=== PATIENT | female | born 1965 | race African-American/Black ===

== ENCOUNTER 2018-06-04 12:19 | Inpatient (IN) | payer MEDICAID, OTHER ==
[2018-06-04 12:49] LABS: ADD MAN DIFF? NO
[2018-06-04 12:57] LABS: BASOPHILS % 0.5 % (0.0-2.0); EOSINOPHILS # 0.2 10^3/ul (0.0-0.5); EOSINOPHILS % 2.3 % (0.0-7.0); HEMATOCRIT 30.1 % (37.0-47.0); HEMOGLOBIN 9.5 g/dl (12.0-16.0); LYMPHOCYTES # 1.7 10^3/ul (0.8-2.9); LYMPHOCYTES % 18.9 % (15.0-51.0); MEAN CORPUSCULAR HEMOGLOBIN 24.9 pg (29.0-33.0); MEAN CORPUSCULAR HGB CONC 31.6 g/dl (32.0-37.0); MEAN PLATELET VOLUME 10.7 fl (7.4-10.4); MONOCYTE # 0.6 10^3/ul (0.3-0.9); MONOCYTES % 6.5 % (0.0-11.0); NEUTROPHIL # 6.3 10^3/ul (1.6-7.5); NEUTROPHILS % 71.3 % (39.0-77.0); PLATELET COUNT 316 10^3/UL (140-415); RED BLOOD COUNT 3.81 10^6/ul (4.20-5.40); RED CELL DISTRIBUTION WIDTH 19.7 % (11.5-14.5)
[2018-06-04 12:57] LABS: WHITE BLOOD COUNT 8.8 10^3/ul (4.8-10.8)
[2018-06-04 13:14] LABS: ALANINE AMINOTRANSFERASE 18 IU/L (13-69); ALBUMIN 3.8 g/dl (3.3-4.9); ALBUMIN/GLOBULIN RATIO 1.02; ALKALINE PHOSPHATASE 71 IU/L (42-121); ANION GAP 9 (5-13); ASPARTATE AMINO TRANSFERASE 21 IU/L (15-46); BILIRUBIN,INDIRECT 0.1 mg/dl (0-1.1); BILIRUBIN,TOTAL 0.1 mg/dl (0.2-1.3); BLOOD UREA NITROGEN 16 mg/dl (7-20); CARBON DIOXIDE 34 mmol/L (21-31); CHLORIDE 98 mmol/L (97-110); CREATININE 0.69 mg/dl (0.44-1.00); Estimated GFR > 60 mL/min (>60); GLUCOSE 117 mg/dl (70-220); LIPASE 77 U/L (23-300); POTASSIUM 3.1 mmol/L (3.5-5.1); SODIUM 141 mmol/L (135-144); TOTAL PROTEIN 7.5 g/dl (6.1-8.1)
[2018-06-04 13:25] LABS: TROPONIN-I < 0.012 ng/ml (0.000-0.120)
[2018-06-04 13:40] LABS: URINE BLOOD (Dip) POC 1+ (NEGATIVE); URINE GLUCOSE (Dip) POC Negative (NEGATIVE); URINE KETONES (Dip) POC 1+ (NEGATIVE); URINE LEUKOCYTE EST (Dip) POC Negative (NEGATIVE); URINE NITRITE (Dip) POC Negative (NEGATIVE); URINE TOTAL PROTEIN POC 1+ (NEGATIVE)
[2018-06-04 13:51] LABS: D-DIMER 7034.91 ng/ml (<460)
[2018-06-04] MEDS: SOD CHLORIDE 0.9% 100 ML (15:25)
[2018-06-04] MEDS: IOHEXOL 100 ML (15:25)
[2018-06-04] MEDS: POTASSIUM CHLORIDE (SR) 20 MEQ TAB PO (15:51)
[2018-06-04 16:16] LABS: HAAIG REFLEX REFLEX FILED
[2018-06-04] MEDS ORDERED: morphine 2 MG INJ IV (16:30)
[2018-06-04] MEDS ORDERED: NACL 0.9% 3 ML SYG IV (16:30)
[2018-06-04] MEDS ORDERED: HYDROCODONE/APAP (5/325) TAB PO (16:30)
[2018-06-04 16:57] LABS: HEPATITIS B SURFACE ANTIGEN NEGATIVE (NEGATIVE)
[2018-06-04 16:58] LABS: CANCER ANTIGEN 125 16.8 U/ml (0.0-35.0)
[2018-06-04 17:01] LABS: ALPHA FETOPROTEIN 2.28 IU/L (0.00-7.21)
[2018-06-04 17:01] LABS: CANCER ANTIGEN 19-9 50.5 U/ml (0.0-37.0)
[2018-06-04 17:15] LABS: HEPATITIS B CORE ANTIBODY NEGATIVE (NEGATIVE); HEPATITIS C VIRAL ANTIBODY NEGATIVE (NEGATIVE)
[2018-06-04] MEDS: D5W-0.45 NACL + KCL 20 MEQ 1,000 ML IV (18:23)
[2018-06-05] MEDS: D5W-0.45 NACL + KCL 20 MEQ 1,000 ML IV ×4 (02:10→22:04)
[2018-06-05 06:39] LABS: ADD MAN DIFF? NO
[2018-06-05 06:52] LABS: BASOPHILS % 0.4 % (0.0-2.0); EOSINOPHILS # 0.3 10^3/ul (0.0-0.5); HEMATOCRIT 26.4 % (37.0-47.0); HEMOGLOBIN 8.4 g/dl (12.0-16.0); LYMPHOCYTES # 1.7 10^3/ul (0.8-2.9); LYMPHOCYTES % 23.7 % (15.0-51.0); MEAN CORPUSCULAR HEMOGLOBIN 25.2 pg (29.0-33.0); MEAN CORPUSCULAR HGB CONC 31.8 g/dl (32.0-37.0); MEAN CORPUSCULAR VOLUME 79.3 fl (82.0-101.0); MEAN PLATELET VOLUME 10.8 fl (7.4-10.4); MONOCYTE # 0.6 10^3/ul (0.3-0.9); MONOCYTES % 8.8 % (0.0-11.0); NEUTROPHIL # 4.6 10^3/ul (1.6-7.5); NEUTROPHILS % 62.8 % (39.0-77.0); PLATELET COUNT 283 10^3/UL (140-415); RED BLOOD COUNT 3.33 10^6/ul (4.20-5.40); RED CELL DISTRIBUTION WIDTH 19.6 % (11.5-14.5)
[2018-06-05 06:52] LABS: WHITE BLOOD COUNT 7.3 10^3/ul (4.8-10.8)
[2018-06-05 07:27] LABS: HEMOGLOBIN A1C 5.6 % (0-5.9)
[2018-06-05 07:32] LABS: IRON 30 ug/dl (35-150)
[2018-06-05 07:39] LABS: ANION GAP 7 (5-13); BLOOD UREA NITROGEN 13 mg/dl (7-20); CALCIUM 8.2 mg/dl (8.4-10.2); CARBON DIOXIDE 34 mmol/L (21-31); CHLORIDE 100 mmol/L (97-110); CREATININE 0.68 mg/dl (0.44-1.00); Estimated GFR > 60 mL/min (>60); GLUCOSE 99 mg/dl (70-220); MAGNESIUM 1.9 mg/dl (1.7-2.5); PHOSPHORUS 3.4 mg/dl (2.5-4.9); POTASSIUM 3.4 mmol/L (3.5-5.1); SODIUM 141 mmol/L (135-144)
[2018-06-05 07:41] LABS: % IRON SATURATION 11 % SAT (22-52); TOTAL IRON BINDING CAPACITY 262 ug/dl (241-421)
[2018-06-05] MEDS: ACETAMINOPHEN 325 MG TAB PO (10:15)
[2018-06-05] MEDS: AMLODIPINE 5 MG TAB PO (10:15)
[2018-06-05] MEDS: BISACODYL (EC) 5 MG TAB PO (15:35)
[2018-06-05] MEDS: POLYETHYLENE GLYCOL 3350 119 GM POWDER PO (17:54)
[2018-06-05] MEDS: SOD FERRIC GLUC COMPLX 125 MG in SOD CHLORIDE 0.9% 100 ML IVPB (17:58)
[2018-06-05] MEDS: MAGNESIUM CITRATE 300 ML BTL PO (18:42)
[2018-06-05] MEDS: ONDANSETRON 4 MG INJ IV (22:16)
[2018-06-06] MEDS: D5W-0.45 NACL + KCL 20 MEQ 1,000 ML IV ×3 (04:55→20:24)
[2018-06-06] MEDS: POLYETHYLENE GLYCOL 3350 119 GM POWDER PO (05:02)
[2018-06-06 06:58] LABS: ANION GAP 8 (5-13); BLOOD UREA NITROGEN 8 mg/dl (7-20); CALCIUM 8.8 mg/dl (8.4-10.2); CARBON DIOXIDE 32 mmol/L (21-31); CHLORIDE 102 mmol/L (97-110); CREATININE 0.65 mg/dl (0.44-1.00); Estimated GFR > 60 mL/min (>60); GLUCOSE 117 mg/dl (70-220); POTASSIUM 3.2 mmol/L (3.5-5.1); SODIUM 142 mmol/L (135-144)
[2018-06-06] MEDS ORDERED: PROPOFOL 200 MG INJ (07:00)
[2018-06-06] MEDS: BISACODYL (EC) 5 MG TAB PO (07:03)
[2018-06-06] MEDS: ACETAMINOPHEN 325 MG TAB PO (07:05)
[2018-06-06] MEDS: AMLODIPINE 5 MG TAB PO (08:11)
[2018-06-06] MEDS: SOD FERRIC GLUC COMPLX 125 MG in SOD CHLORIDE 0.9% 100 ML IVPB (18:43)
[2018-06-07] MEDS: D5W-0.45 NACL + KCL 20 MEQ 1,000 ML IV ×4 (04:04→23:45)
[2018-06-07 07:56] LABS: ANION GAP 9 (5-13); BLOOD UREA NITROGEN 6 mg/dl (7-20); CALCIUM 8.6 mg/dl (8.4-10.2); CARBON DIOXIDE 30 mmol/L (21-31); CHLORIDE 103 mmol/L (97-110); CREATININE 0.68 mg/dl (0.44-1.00); Estimated GFR > 60 mL/min (>60); GLUCOSE 113 mg/dl (70-220); POTASSIUM 3.2 mmol/L (3.5-5.1); SODIUM 142 mmol/L (135-144)
[2018-06-07] MEDS: AMLODIPINE 5 MG TAB PO (09:56)
[2018-06-07] MEDS: LIDOCAINE 2% (SDV) 5 ML INJ (09:57)
[2018-06-07] MEDS: PROPOFOL 40 ML (09:58)
[2018-06-07] MEDS: IOHEXOL 300MG/ML 150 ML BTL (11:57)
[2018-06-07] MEDS: POTASSIUM CHLORIDE (SR) 20 MEQ TAB PO (11:58)
[2018-06-07] MEDS: SOD FERRIC GLUC COMPLX 125 MG in SOD CHLORIDE 0.9% 100 ML IVPB (17:00)
[2018-06-08 06:25] LABS: ADD MAN DIFF? NO
[2018-06-08 06:31] LABS: WHITE BLOOD COUNT 7.5 10^3/ul (4.8-10.8)
[2018-06-08 06:31] LABS: BASOPHILS % 0.4 % (0.0-2.0); EOSINOPHILS # 0.3 10^3/ul (0.0-0.5); EOSINOPHILS % 3.9 % (0.0-7.0); HEMATOCRIT 23.6 % (37.0-47.0); HEMOGLOBIN 7.3 g/dl (12.0-16.0); LYMPHOCYTES # 1.8 10^3/ul (0.8-2.9); LYMPHOCYTES % 23.7 % (15.0-51.0); MEAN CORPUSCULAR HGB CONC 30.9 g/dl (32.0-37.0); MEAN CORPUSCULAR VOLUME 80.8 fl (82.0-101.0); MEAN PLATELET VOLUME 10.1 fl (7.4-10.4); MONOCYTE # 0.4 10^3/ul (0.3-0.9); MONOCYTES % 5.8 % (0.0-11.0); NEUTROPHIL # 4.9 10^3/ul (1.6-7.5); NEUTROPHILS % 65.4 % (39.0-77.0); PLATELET COUNT 349 10^3/UL (140-415); RED BLOOD COUNT 2.92 10^6/ul (4.20-5.40); RED CELL DISTRIBUTION WIDTH 20.1 % (11.5-14.5)
[2018-06-08 06:53] LABS: ANION GAP 7 (5-13); BLOOD UREA NITROGEN 5 mg/dl (7-20); CALCIUM 8.9 mg/dl (8.4-10.2); CARBON DIOXIDE 30 mmol/L (21-31); CHLORIDE 106 mmol/L (97-110); CREATININE 0.65 mg/dl (0.44-1.00); Estimated GFR > 60 mL/min (>60); GLUCOSE 105 mg/dl (70-220); POTASSIUM 3.6 mmol/L (3.5-5.1); SODIUM 143 mmol/L (135-144)
[2018-06-08] MEDS: AMLODIPINE 5 MG TAB PO (08:27)
[2018-06-08] MEDS: D5W-0.45 NACL + KCL 20 MEQ 1,000 ML IV ×2 (10:04→11:47)
[2018-06-09] MEDS: D5W-0.45 NACL + KCL 20 MEQ 1,000 ML IV (01:09)
[2018-06-09] MEDS: AMLODIPINE 5 MG TAB PO (08:48)
[2018-06-10] MEDS: AMLODIPINE 5 MG TAB PO (08:45)
[2018-06-11] MEDS: AMLODIPINE 5 MG TAB PO (08:20)
[2018-06-11] MEDS: BARIUM SULF 2% 450 ML BTL (BERRY SMOOTHIE) PO (15:01)
[2018-06-11] MEDS: ONDANSETRON 4 MG INJ IV (16:18)
[2018-06-11] MEDS: SOD FERRIC GLUC COMPLX 125 MG in SOD CHLORIDE 0.9% 100 ML IVPB (16:37)
[2018-06-11] MEDS: IOHEXOL 300MG/ML 150 ML BTL (18:34)
[2018-06-11] MEDS: SOD CHLORIDE 0.9% 100 ML (18:34)
[2018-06-12] MEDS: AMLODIPINE 5 MG TAB PO (08:32)
[2018-06-12] MEDS: SOD FERRIC GLUC COMPLX 125 MG in SOD CHLORIDE 0.9% 100 ML IVPB (17:13)
[2018-06-13 07:20] LABS: ADD MAN DIFF? NO
[2018-06-13 07:27] LABS: ABNORMAL IP MESSAGE 1; BASOPHILS % 0.3 % (0.0-2.0); EOSINOPHILS # 0.3 10^3/ul (0.0-0.5); EOSINOPHILS % 4.5 % (0.0-7.0); HEMATOCRIT 21.4 % (37.0-47.0); LYMPHOCYTES # 1.6 10^3/ul (0.8-2.9); MEAN CORPUSCULAR HEMOGLOBIN 25.7 pg (29.0-33.0); MEAN CORPUSCULAR HGB CONC 30.8 g/dl (32.0-37.0); MEAN CORPUSCULAR VOLUME 83.3 fl (82.0-101.0); MEAN PLATELET VOLUME 9.6 fl (7.4-10.4); MONOCYTE # 0.7 10^3/ul (0.3-0.9); MONOCYTES % 10.4 % (0.0-11.0); NEUTROPHIL # 4.3 10^3/ul (1.6-7.5); NEUTROPHILS % 60.4 % (39.0-77.0); PLATELET COUNT 412 10^3/UL (140-415); RED BLOOD COUNT 2.57 10^6/ul (4.20-5.40); RED CELL DISTRIBUTION WIDTH 21.7 % (11.5-14.5)
[2018-06-13 07:40] LABS: POSITIVE DIFF @See below
[2018-06-13 07:44] LABS: HEMOGLOBIN 6.6 g/dl (12.0-16.0)
[2018-06-13 07:45] LABS: ANION GAP 6 (5-13); BLOOD UREA NITROGEN 13 mg/dl (7-20); CALCIUM 8.9 mg/dl (8.4-10.2); CARBON DIOXIDE 31 mmol/L (21-31); CHLORIDE 100 mmol/L (97-110); CREATININE 0.73 mg/dl (0.44-1.00); Estimated GFR > 60 mL/min (>60); GLUCOSE 94 mg/dl (70-220); PATH REVIEW? YES; SODIUM 137 mmol/L (135-144)
[2018-06-13] MEDS: AMLODIPINE 5 MG TAB PO (08:35)
[2018-06-13 09:35] LABS: ANISOCYTOSIS 1+ (0-0); BAND NEUTROPHILS #M 0.3 10^3/ul (0.0-0.6); BAND NEUTROPHILS % (M) 5 % (0-4); EOSINOPHILS % (M) 10 % (0-7); ERYTHROBLAST% (NRBC) (M) 1 % (0-0); HYPOCHROMASIA 1+ (0-0); LYMPHOCYTES #M 1.4 10^3/ul (0.8-2.9); LYMPHOCYTES % (M) 20 % (15-51); MICROCYTOSIS 1+ (0-0); MONOCYTE #M 0.4 10^3/ul (0.3-0.9); MONOCYTES % (M) 6 % (0-11); OVALOCYTES 1+ (0-0); PLATELET ESTIMATE NORMAL; POIKILOCYTOSIS 1+ (0-0); POLYCHROMASIA 3+ (0-0); REACTIVE LYMPHOCYTES #M 0.2 10^3/ul (0.0-0.0); REACTIVE LYMPHOCYTES% (M) 3 % (0-0); SEG NEUT #M 3.9 10^3/ul (1.6-7.5); SEGMENTED NEUTROPHILS (M) % 56 % (39-77); SMUDGE%M 17 % (0-0)
[2018-06-13 10:13] LABS: INR 1.01; PROTIME 13.4 Sec (11.9-14.9)
[2018-06-13 10:14] LABS: PARTIAL THROMBOPLASTIN TIME 31.3 Sec (23.0-35.0)
[2018-06-13] MEDS: SOD FERRIC GLUC COMPLX 125 MG in SOD CHLORIDE 0.9% 100 ML IVPB (16:27)
[2018-06-13] MEDS ORDERED: morphine LIQ (10 MG/5 ML) CUP PO (21:00)
[2018-06-13 21:47] LABS: IMMEDIATE SPIN CROSSMATCH 1 2
[2018-06-14] MEDS: AMLODIPINE 5 MG TAB PO (09:56)
== END 2018-06-14 13:12 | disposition home or self-care (01) | DRG 375 ==
LOC: PP2 06-07 06:47 → E/R 12:19 → TEL 14:34
PROC: 0DBN8ZX Excision of Sigmoid Colon, Via Natural or Artificial Opening Endoscopic, Diagnostic (ICD-10-PCS; principal; 2018-06-06 16:00)
PROC: 0DB78ZX Excision of Stomach, Pylorus, Via Natural or Artificial Opening Endoscopic, Diagnostic (ICD-10-PCS; 2018-06-06 16:00)
PROC: 30233N1 Transfusion of Nonautologous Red Blood Cells into Peripheral Vein, Percutaneous Approach (ICD-10-PCS; 2018-06-06 16:00)
DX: C18.7 Malignant neoplasm of sigmoid colon (principal); C77.2 Secondary and unspecified malignant neoplasm of intra-abdominal lymph nodes; C78.7 Secondary malignant neoplasm of liver and intrahepatic bile duct; C79.82 Secondary malignant neoplasm of genital organs; N13.30 Unspecified hydronephrosis; D50.0 Iron deficiency anemia secondary to blood loss (chronic); E86.0 Dehydration; E87.6 Hypokalemia; I10 Essential (primary) hypertension; R55 Syncope and collapse; R63.4 Abnormal weight loss; Z68.23 Body mass index [BMI] 23.0-23.9, adult; Z90.49 Acquired absence of other specified parts of digestive tract
CPT/HCPCS: 36415; 36430; 70450; 71045; 71275; 74176; 74177; 74181; 74270; 76705; 80048; 80053; 81003; 82105; 82378; 82728; 83036; 83540; 83690; 83735; 84100; 84484; 85025; 85378; 85610; 85730; 86301; 86304; 86704; 86709; 86803; 86850; 86900; 86901; 86920; 87340; 88305; 88312; 93005; 93306; 99291-25

== ENCOUNTER 2018-07-15 13:46 | Emergency (ER) | payer MEDICAID ==
[2018-07-15] MEDS: SOD CHLORIDE 0.9% 500 ML IV (14:09)
[2018-07-15 14:36] LABS: ABNORMAL IP MESSAGE 1; HEMATOCRIT 18.4 % (37.0-47.0); MEAN CORPUSCULAR HEMOGLOBIN 26.1 pg (29.0-33.0); MEAN CORPUSCULAR VOLUME 84.4 fl (82.0-101.0); MEAN PLATELET VOLUME 8.6 fl (7.4-10.4); PLATELET COUNT 475 10^3/UL (140-415); RED BLOOD COUNT 2.18 10^6/ul (4.20-5.40); RED CELL DISTRIBUTION WIDTH 15.7 % (11.5-14.5)
[2018-07-15 14:42] LABS: POSITIVE DIFF @See below
[2018-07-15 14:46] LABS: PROTIME 13.3 Sec (11.9-14.9)
[2018-07-15 14:47] LABS: ADD MAN DIFF? YES; HEMOGLOBIN 5.7 g/dl (12.0-16.0); PARTIAL THROMBOPLASTIN TIME 26.8 Sec (23.0-35.0); PATH REVIEW? YES
[2018-07-15 14:49] LABS: ALANINE AMINOTRANSFERASE 16 IU/L (13-69); ALBUMIN 3.4 g/dl (3.3-4.9); ALBUMIN/GLOBULIN RATIO 0.91; ALKALINE PHOSPHATASE 77 IU/L (42-121); ANION GAP 9 (5-13); ASPARTATE AMINO TRANSFERASE 29 IU/L (15-46); BLOOD UREA NITROGEN 13 mg/dl (7-20); CALCIUM 8.9 mg/dl (8.4-10.2); CARBON DIOXIDE 31 mmol/L (21-31); CHLORIDE 94 mmol/L (97-110); CREATININE 0.74 mg/dl (0.44-1.00); Estimated GFR > 60 mL/min (>60); GLUCOSE 110 mg/dl (70-220); POTASSIUM 3.2 mmol/L (3.5-5.1); SODIUM 134 mmol/L (135-144); TOTAL PROTEIN 7.1 g/dl (6.1-8.1)
[2018-07-15] MEDS: SOD CHLORIDE 0.9% 0 ML IV (15:06)
[2018-07-15] MEDS: MAGNESIUM SULFATE 2 GM/50 ML 50 ML IVPB (15:23)
[2018-07-15 15:24] LABS: BAND NEUTROPHILS #M 0.3 10^3/ul (0.0-0.6); BAND NEUTROPHILS % (M) 4 % (0-4); EOSINOPHILS % (M) 5 % (0-7); HYPOCHROMASIA 2+ (0-0); LYMPHOCYTES #M 0.9 10^3/ul (0.8-2.9); LYMPHOCYTES % (M) 12 % (15-51); MONOCYTE #M 0.2 10^3/ul (0.3-0.9); MONOCYTES % (M) 3 % (0-11); PLATELET ESTIMATE NORMAL; POIKILOCYTOSIS 1+ (0-0); POLYCHROMASIA 2+ (0-0); SEG NEUT #M 6.1 10^3/ul (1.6-7.5); SEGMENTED NEUTROPHILS (M) % 76 % (39-77); SMUDGE%M 2 % (0-0)
[2018-07-15] MEDS: POTASSIUM CHLORIDE (SR) 20 MEQ TAB PO (15:24)
[2018-07-15 17:42] LABS: IMMEDIATE SPIN CROSSMATCH 1 2
== END 2018-07-15 23:45 | disposition home or self-care (01) ==
LOC: E/R 13:46
PROVIDERS: Pediatrics
DX: D64.9 Anemia, unspecified (principal); I10 Essential (primary) hypertension; R10.9 Unspecified abdominal pain; Z85.038 Personal history of other malignant neoplasm of large intestine
CPT/HCPCS: 36430; 80053; 85025; 85610; 85730; 86850; 86900; 86901; 86920; 93005; 96361; 96365; 96366; 99285-25